=== PATIENT | female | born 1975 | race African-American/Black ===

== ENCOUNTER 2018-04-26 20:58 | Emergency (ER) | payer OTHER ==
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
[2018-04-26] MEDS ORDERED: ACETAMINOPHEN 325 MG TABLET PO ONE (21:47)
[2018-04-26] MEDS ORDERED: IBUPROFEN 600 MG TABLET PO ONE (22:45)
[2018-04-26] MEDS ORDERED: CYCLOBENZAPRINE HCL 10 MG TABLET PO ONE (22:45)
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
[2018-04-26 23:18] VITALS: BP 144/91
== END 2018-04-26 23:18 | disposition home or self-care (01) ==
LOC: ER 20:58
DX: S16.1XXA Strain of muscle, fascia and tendon at neck level, initial encounter (principal); S60.212A Contusion of left wrist, initial encounter; M25.532 Pain in left wrist; V49.40XA Driver injured in collision with unspecified motor vehicles in traffic accident, initial encounter; J45.909 Unspecified asthma, uncomplicated; R03.0 Elevated blood-pressure reading, without diagnosis of hypertension
CPT/HCPCS: 99283; 73110; L3908